=== PATIENT | male | born 1990 | race Two or more races ===

== ENCOUNTER 2022-11-12 23:14 | Emergency (ER) | payer MEDICAID, OTHER ==
[~2022-11-12] VITALS: Ht 177.8 cm; Wt 86.2 kg
[2022-11-12 23:50] VITALS: BP 132/80; TEMP 98.5; O2SAT 99
== END 2022-11-13 00:58 ==
LOC: EDBD 23:16 → ER 23:16
DX: R05.9 Cough, unspecified (principal); Z20.822 Contact with and (suspected) exposure to COVID-19
CPT/HCPCS: 99283; 87426; C9803